=== PATIENT | female | born 1995 | race Caucasian/White ===

== ENCOUNTER 2017-10-19 09:33 | Emergency (ER) | payer BC, MEDICAID ==
[2017-10-19] MEDS ORDERED: MAG HYDROX/AL HYDROX/SIMETH 30 ML UDCUP PO ONE (10:08)
[2017-10-19] MEDS ORDERED: LIDOCAINE 2% VISCOUS 15 ML UDCUP PO ONE (10:08)
[2017-10-19] MEDS ORDERED: HYOSCYAMINE SULFATE 0.125 MG TAB PO ONE (10:08)
--- NOTE | 2017-10-19 10:11 | EDPHY ---
H & P Time Seen by Provider: 10/19/17 09:46 HPI/ROS: CHIEF COMPLAINT: Midback pain, epigastric pain HISTORY OF PRESENT ILLNESS: 22-year-old female with scoliosis presents with midback and epigastric pain. Onset of diffuse myalgias and a sore throat 2 days ago. The sore throat has resolved, but she continues to have diffuse myalgias and now has localized discomfort in her mid back. Associated with diarrhea, nausea and abdominal cramping. Back pain is c/w prior back pain related to scoliosis, just unusual to have other associated sx. No urinary symptoms, vaginal discharge, fever or chills. REVIEW OF SYSTEMS: Constitutional: No fever, no chills Eyes: No visual changes ENT: No sore throat Respiratory: No cough, no shortness of breath Cardiac: No chest pain Gastrointestinal: no vomiting Genitourinary: No hematuria, no dysuria Skin: No rash Neurological: No headache Psychiatric: No depression Past Medical/Surgical History: Scoliosis Social History: No recent alcohol Smoking Status: Never smoked Physical Exam: General Appearance: Alert, pleasant Eyes: Pupils equal and round, no conjunctival pallor or injection ENT, Mouth: Mucous membranes moist Neck: Normal inspection Respiratory: Lungs are clear to auscultation Cardiovascular: Regular rate and rhythm Gastrointestinal: Abdomen is soft, mild epigastric tenderness Back: Normal inspection, paraspinous tenderness in the lower thoracic area, no midline tenderness Neurological: A&O, nonfocal, normal gait Skin: Warm and dry, no rash Extremities: Normal inspection, no swelling Psychiatric: Mood and affect normal Constitutional: Initial Vital Signs Temperature (C) 36.4 C 10/19/17 09:38 Heart Rate 70 10/19/17 09:38 Respiratory Rate 17 10/19/17 09:38 Blood Pressure 148/83 H 10/19/17 09:38 O2 Sat (%) 98 10/19/17 09:38 O2 Delivery Mode Room Air Allergies/Adverse Reactions: No Known Allergies Allergy (Unverified 10/19/17 09:38) Home Medications: Medication Instructions Recorded NK [No Known Home Meds] 10/19/17 Medical Decision Making ED Course/Re-evaluation: This patient presents with a constellation of symptoms, most consistent with a viral syndrome. GI cocktail given for epigastric discomfort. Will reassess after the GI cocktail. Epigastric pain has resolved after GI cocktail. She continues to have lower thoracic pain, consistent with musculoskeletal etiology. There is no indication for imaging or laboratory studies today. I think that she has gastroenteritis, as well as musculoskeletal back pain. Declines Zofran rx. Abd exam unchanged on d/c. I do not suspect appy or other serious abd etiology of sx. Safe and stable for discharge home. Differential Diagnosis: includes though not limited to pyelonephritis, appy, pancreatitis, griselda - Data Points Medications Given: Discontinued Medications Al Hydroxide/Mg Hydroxide (Maalox Susp) 30 ml PO ONCE ONE Stop: 10/19/17 10:09 Last Admin: 10/19/17 10:15 Dose: 30 ml Hyoscyamine Sulfate (Levsin, Hyomax-Sl) 0.25 mg PO ONCE ONE Stop: 10/19/17 10:09 Last Admin: 10/19/17 10:15 Dose: 0.25 mg Lidocaine (Lidocaine 2% Viscous) 15 ml PO ONCE ONE Stop: 10/19/17 10:09 Last Admin: 10/19/17 10:15 Dose: 15 ml Departure - Departure Disposition: Home, Routine, Self-Care Clinical Impression: Gastroenteritis Back pain Qualifiers: Back pain location: thoracic back pain Chronicity: acute Back pain laterality: bilateral Qualified Code(s): M54.6 - Pain in thoracic spine Condition: Good Instructions: Gastroenteritis (ED), Back Pain (ED) Additional Instructions: Take Tylenol 650 mg every 4 hr as needed for pain. Referrals: Tammy Jacobs MD [[facility] [place] Primary Care Provider] - As per Instructions
[2017-10-19 11:43] VITALS: BP 128/48; PULSE 49; RESP 16; TEMP 97.9; O2SAT 97
== END 2017-10-19 11:37 | disposition home or self-care (01) ==
DX: K52.9 Noninfective gastroenteritis and colitis, unspecified (principal); M54.6 Pain in thoracic spine